=== PATIENT | female | born 1975 | race Two or more races ===

== ENCOUNTER 2020-12-28 22:11 | Emergency (ER) | payer OTHER ==
[~2020-12-28] VITALS: Ht 165.1 cm; Wt 63.7 kg
--- NOTE | 2020-12-28 22:25 | NUR ---
Patient BIB [facility] 86 for fall [place]. Per rescue patient fell onto her stomach. Patient portuguese speaking; and verbalized to this nurse that she tripped on an area of the golf [place] and fell onto her Rt breast and her throat. Pt c/o of pain on her throat and and chest area. Dr. Knight at bedside upon pt's arrival.
[2020-12-28] MEDS ORDERED: TDAP DIPH,PERTUSS,TET VAC/PF 0.5 ML DISP.SYRIN IM ONE ×2 (22:30→22:37)
[2020-12-28] MEDS ORDERED: KETOROLAC TROMETHAMINE 15 MG INJ IVP ONE (22:30)
[2020-12-28] MEDS ORDERED: KETOROLAC TROMETHAMINE 15 MG INJ ONE (22:37)
[2020-12-28 22:39] LABS: HEMATOCRIT 38.5 % (31.2-41.9); PLATELET COUNT (AUTO) 259 K/uL (179-408)
[2020-12-28 22:58] LABS: BILIRUBIN,DIRECT 0.1 mg/dL (0.0-0.2); BILIRUBIN,TOTAL 0.2 mg/dL (0.2-1.0); CREATININE 0.7 mg/dL (0.6-1.3); POTASSIUM 3.8 mmol/L (3.5-5.1); TOTAL PROTEIN, SERUM 7.5 g/dL (6.4-8.2)
[2020-12-28] MEDS ORDERED: LIDOCAINE HCL 1% 20 ML VIAL IJ ONE (23:00)
[2020-12-28] MEDS ORDERED: LIDOCAINE HCL 2% 20 ML VIAL ONE (23:10)
--- NOTE | 2020-12-28 23:10 | NUR ---
Colle splint placed to Lt wrist with Dr. Knight at bedside. Pt tolerated procedure well.
--- NOTE | 2020-12-29 00:26 | NUR ---
Per Dr. Knight patient stable for discharge. DC instructions given and reviewed with patient and her daughter. Verbalized understanding. IV dc'd noted with tip intact. Left ER in stable condition. Ambulated out of ED with steady gait.
== END 2020-12-29 00:28 | disposition home or self-care (01) ==
LOC: ER 22:13
DX: S52.572A Other intraarticular fracture of lower end of left radius, initial encounter for closed fracture (principal); S20.313A Abrasion of bilateral front wall of thorax, initial encounter; W01.0XXA Fall on same level from slipping, tripping and stumbling without subsequent striking against object, initial encounter; Y93.53 Activity, golf; Y92.39 Other specified sports and athletic area as the place of occurrence of the external cause; Z85.3 Personal history of malignant neoplasm of breast; Z88.0 Allergy status to penicillin
CPT/HCPCS: 29125; 36415; 71045; 73090; 73100; 73120; 73560; 80048; 80076; 83690; 84484; 85025; 90471; 90715; 96374; 99285; J1885; J3490; 70030-TC